=== PATIENT | male | born 1980 | race Caucasian/White ===

== ENCOUNTER 2023-10-17 23:31 | Emergency (ER) | payer SELFPAY ==
[2023-10-17 23:45] VITALS: BP 133/84; PULSE 95; RESP 16; TEMP 36.6; O2SAT 100; BMI 23.0
--- NOTE | 2023-10-18 00:07 | ED.BACK ---
HPI - Back Pain/Injury General Chief Complaint: Back Pain/Injury Stated Complaint: right lower back pain Time Seen by Provider: 10/18/23 00:00 History of Present Illness HPI Narrative: Patient is a 43-year-old healthy male who presents today with right sided pain. He does do a lot of manual labor he does remember pushing on something really hard and lifting something really heavy he has not sure if he injured anything. It seems to be pinpoint they were able to massage it in 1 particular area. Then he used an S shaped device to help really get the not out and then it hurt even more afterwards. He took some Motrin yesterday for pain. It has not radiating around to his groin is not going down his leg he does not feel like it is coming and going he has no nausea or vomiting. It is kind of in his right flank area. He denies any blood in his urine or painful frequent urination. Patient History Social History Smoking Status: Never smoker Smoking Status: Never smoker Substance Use Type: marijuana Exam Initial Vital Signs Initial Vital Signs: Vital Signs Temperature 97.8 F 10/17/23 23:45 Pulse Rate 95 H 10/17/23 23:45 Respiratory Rate 16 10/17/23 23:45 Blood Pressure 133/84 10/17/23 23:45 Pulse Oximetry 100 10/17/23 23:45 Oxygen Delivery Method Room Air 10/17/23 23:45 GENERAL: Alert 43-year-old male and in no acute distress. HEENT: Head atraumatic,EOMI, pupils reactive, face symmetric, moist mucous membranes CARDIOVASCULAR: Regular rate and rhythm without murmurs, rubs or gallops. RESPIRATORY: Breath sounds equal bilaterally, no wheezes rales or rhonchi. ABDOMEN: Soft, nontender. Normoactive bowel sounds all 4 quadrants. No guarding or rebound. : No CVA tenderness, tender in his right side but not really over his kidney area EXTREMITIES: Normal range of motion, no clubbing or edema. Neurovascularly intact NEUROLOGICAL: Alert and oriented x4.Normal gait and speech. SKIN: Warm, dry, no laceration, no petechiae, no rashes or lesions. Course Orders Ordered: Discontinued Medications Ketorolac Tromethamine (Ketorolac 30 Mg/Ml Vial) 30 mg IM NOW ONE Stop: 10/18/23 00:16 Last Admin: 10/18/23 00:24 Dose: 30 mg Documented By: HALEY Vital Signs Vital signs: Vital Signs - 8 hr 10/17/23 23:45 10/18/23 00:34 Temperature 97.8 F Pulse Rate 95 H 84 Respiratory Rate 16 16 Blood Pressure 133/84 139/80 Pulse Oximetry 100 100 Oxygen Delivery Method Room Air Room Air MDM - Back Pain/Injury Lab Data Labs: Urine Dip Bedside Urine Glucose Negative Bedside Urine Bilirubin - Negative Bedside Urine Ketone - Negative Urine Specific [place] 1.020 Bedside Urine Occult Blood - Negative Bedside Urine pH 6.0 Bedside Urine Protein - Negative Bedside Urine Urobilinogen - Negative Bedside Urine Nitrite - Negative Bedside Urine Leukocytes - Negative Esterase MDM Narrative Medical decision making narrative: Patient healthy 43-year-old male presents with a right-sided pain. It is sounding not quite like a kidney stone he does not have any sort of hematuria was tender 1 particular space. It is kind of right rib area he has negative Ross sign no CVA tenderness. Low suspicion for nephrolithiasis cholelithiasis maybe possibly like a costochondritis. He has a heating border bottle on now. He overall appears comfortable. He has given a shot Toradol here in the ED. Discussed with him when to return to the ED. He feels comfortable with this plan. Does not require any further pain medications at this time. Discharge Plan Departure Patient Disposition: Home Clinical Impression: Thoracic back pain, Acute costochondritis Instructions: Costochondritis, DI for Back Spasm Activity Restrictions/Additional Instructions: *You have been diagnosed with costochondritis *What to do: At this time recommend ice or heat. This will take time to heal. *Continue to take medications as directed Tylenol 1000 mg every 6 hours for [id number] pain Motrin 600 mg every 6 hours for [id number] pain *Follow up with your primary care provider in 2-3 days or call [phone] *Return to ER if you should have increasing pain persistent vomiting or any new, worsening or concerning symptoms Stand Alone Forms: Patient Portal/API
[2023-10-18] MEDS: KETOROLAC 30 MG/ML VIAL IM (00:24)
[2023-10-18 00:34] VITALS: BP 139/80; PULSE 84; RESP 16; O2SAT 100
== END 2023-10-18 00:37 | disposition home or self-care (01) ==
PROVIDERS: Emergency Provider Emergency Medicine
DX: M54.6 Pain in thoracic spine (principal); M94.0 Chondrocostal junction syndrome [Tietze]
CPT/HCPCS: 81003; 96372; 99283; J1885